=== PATIENT | male | born 1930 | race Caucasian/White ===

== ENCOUNTER 2016-12-30 15:06 | Observation (INO) | payer MEDICARE, BC ==
--- NOTE | ~2016-12-30 | DS ---
Discharge Summary [facility] [address] [place]. [address] NAME: KANG MUÑIZ JR : [birth year] STATUS : DIS Zacarias PAT#: [id number] AGE: 86 ADM/REG DATE : 12/30/16 MR#: [id number] REPORT SERV DATE: 01/01/17 DICTATED BY: Nic RUDOLPH DATE: 01/01/17 REPORT STATUS : Draft TRANSCRIBED BY: MODLuna DATE: 01/01/17 ADMISSION DATE: 12/30/2016 DISCHARGE DATE: 01/01/2017 DIAGNOSES AT DISCHARGE: TIA, type 2 diabetes, aortic stenosis, mild in nature per echo. CONSULTS: Cardiology and Neurology. PROCEDURES: MRI brain, carotid ultrasound, and CTA neck. BRIEF HOSPITAL COURSE: An 86-year-old male patient, came in with transient neuro symptoms concerning for TIA, was placed in the CDU. His medical therapy was upgraded to a combination of Eliquis plus aspirin with the addition of Lipitor 80 at bedtime. Imaging studies included a negative MRI of the brain and negative carotid ultrasound. There was some suggestion on CTA of the neck of a jugular venous thrombus; however, a dedicated CT of the neck showed there was no such thrombus and this was in fact a normal study. The patient was also found to have a low B12 level which was treated with vitamin replacement. Once his studies came back to be found unremarkable, he was felt stable to discharge home. He has a 2-week followup with his title clerk automobile Dr. Ray Bedoya. He will continue on his home therapy which will include Eliquis 5 b.i.d.; aspirin 81 daily; Lipitor 80 at bedtime; Lasix 20 daily; Protonix 40 daily; and vitamin D 5000 units daily. Further recommendations for ongoing treatment pending outpatient followup with his primary care provider as well as Cardiology. [facility]/ILDEFONSO Nic Rudolph M.D. / [id number] CC: Margarito Woodard M.D.
--- NOTE | ~2016-12-30 | HP ---
History And Physical [place] [address] [facility] [place]. [address] NAME: KANG MUÑIZ JR : [birth year] STATUS : ADM Zacarias PAT#: [id number] AGE: 86 ADM/REG DATE : 12/30/16 MR#: [id number] REPORT SERV DATE: 12/30/16 DICTATED BY: KAMERON CHAVARRIA DATE: 12/30/16 REPORT STATUS : Draft TRANSCRIBED BY: MODL DATE: 12/30/16 DATE OF ADMISSION: 12/30/2016 CHIEF COMPLAINT: Dizziness with visual changes while at [employer] today. HISTORY OF PRESENT ILLNESS: The patient is an 86-year-old very pleasant male with past medical history of diabetes type 2 non-insulin dependent, aortic stenosis, asthma history, carotid disease followed by Dr. Bedoya, and rectal cancer history followed by Dr. Good, who presents after having gone to [facility] today and was noted to be having dizziness changes which he initially attributed to his vertigo that he has had chronically, but symptoms were slightly different noticed by his . The patient also reported that he had difficulty speaking and visual changes with reading the bulletin, which is noncharacteristic of him. After these triplet of symptoms, the patient's told the patient he needs to come to emergency room for evaluation. The patient has currently gone under workup for carotid disease by Dr. Bedoya and has to have an ultrasound tomorrow and there are concerns for possible TIA symptoms in the emergency room. Symptoms did occur at 10 o'clock. All symptoms have resolved. The patient was discussed with Neurology in the ER, non-tPA candidate. Symptoms initially were constant, moderate severity, but no pain or radiating symptoms. No nausea, vomiting, fever, chills, or headache. Has had chronic cough, but no bronchitis. There are no worsening or relieving symptoms, but they are clinically resolved all at this time. REVIEW OF SYSTEMS: For additional 10-point review of systems, negative for that noted in HPI. PAST MEDICAL HISTORY: Colon cancer, followed by Dr. Good; diabetes; aortic stenosis; carotid disease, followed by Dr. Bedoya. Additional past medical history of asthma and vertigo. SURGICAL HISTORY: Has had rectal surgeries by Dr. Good. SOCIAL HISTORY: No smoking. No illicits. Has had one glass of wine in college and gave up beer when romo went from 5 cents to 10 cents a can. FAMILY HISTORY: Mother had cancer, unclear which type or variety. Father of end-stage renal disease. ALLERGIES: SULFA AND DILAUDID. HOME MEDICATIONS: Albuterol, Eliquis, Lasix, Xopenex, a multivitamin, and Klor-Con. PHYSICAL EXAMINATION: VITAL SIGNS: Blood pressure 139/63, temperature 98.5, pulse 65, respirations 18, O2 saturations 99%. GENERAL: No acute distress. Calm, pleasant. HEAD: Normocephalic, atraumatic. History And Physical [address] [address] NAME: KANG MUÑIZ JR : [birth year] STATUS : ADM Zacarias PAT#: [id number] AGE: 86 ADM/REG DATE : 12/30/16 MR#: [id number] REPORT SERV DATE: 12/30/16 DICTATED BY: KAMERON CHAVARRIA DATE: 12/30/16 REPORT STATUS : Draft TRANSCRIBED BY: ILDEFONSO DATE: 12/30/16 EYES: No scleral icterus. EOMI. No nystagmus. ENT: Mildly poor dentition, but moist mucous membranes. Nares clear. No pharyngeal cobblestoning. No erythema in posterior pharynx. Negative thrush. CV: Regular rate with systolic ejection murmur approximately 2/6. Pedal pulses equal bilaterally. No pedal edema. Cap refill less than 2 seconds. GI: Soft, nontender, nondistended. Bowel sounds positive. Negative fluid wave. : Deferred. MUSCULOSKELETAL: Moves all extremities x4. Symmetrical strength in upper and lower extremities. SKIN: Warm and dry. LYMPH: No cervical or supraclavicular lymphadenopathy. HEME: No bleeding or bruising. NEURO: Alert and oriented. Moves all extremities. Symmetrical strength bilaterally. Equal hand die maker trim in upper extremities. Sensation is still grossly intact in lower extremities. Fine touch finger dexterity still intact. Able to read fine print even smaller than his bulletin per family at bedside. No nystagmus. No reproducible vertigo at this time. Symmetrical smile. Normal vocal carole. PSYCH: Appropriate mood and affect, joking manner. Very pleasant. LABORATORY DATA AND IMAGING: Portable chest, no acute abnormality. CTA neck, no acute intracranial abnormality or atrophy. Chronic microvascular and chronic matter ischemic changes. No significant arterial abnormality within the neck or brain, nodule, or complex cysts at isthmus of thyroid. Frontal, ethmoid, and maxillary sinus inflammatory changes with maxillary and ethmoid sinus surgical changes. Degenerative changes especially C5-C6. Minimal nodule in the right upper lobe only partially imaged. Calcified granuloma in the left lung apex. CBC; WBC count 7.3, H and H 13.8 and 41.6, MCV 98.1, platelets 195. INR 1.3. Brain stroke protocol, no acute intracranial abnormality or atrophy. Chronic microvascular ischemic changes, calcified atherosclerosis, maxillary disease, and surgical changes. CMP; sodium 145, potassium 4.0, chloride 108, carbon dioxide 30, BUN and creatinine 17 and 1.21, glucose 83, total protein 7.6, albumin 3.4 with a globulin of 4.2, alkaline phosphatase 103, AST and ALT 11 and 15, troponin negative. EKG, normal sinus rhythm with a rate of 70, QTc of 423. No dynamic ST changes. ASSESSMENT AND PLAN: 1. Transient ischemic attack workup. 2. Aortic stenosis. 3. Rectal cancer history. 4. Incidental nodule, minimal size on upper lung exam. 5. Asthma history. 6. Diabetes type 2. 7. Vertigo. 8. Carotid disease. 9. Thyroid irregularity on CT. PLAN: For TIA, prior changes noted on CT. Does have vertigo history, but in the presence of acute visual changes and concern from . We will continue neuro workup and MRI. Has had CTA performed in the emergency room. Does have history of carotid disease that is under History And Physical [address] [address] NAME: ANTONINOKANG Matt SHELTON : [birth year] STATUS : ADM Zacarias PAT#: [id number] AGE: 86 ADM/REG DATE : 12/30/16 MR#: [id number] REPORT SERV DATE: 12/30/16 DICTATED BY: KAMERON CHAVARRIA DATE: 12/30/16 REPORT STATUS : Draft TRANSCRIBED BY: MODL DATE: 12/30/[address] Bedoya. We will continue TIA order set until ruled out. We will defer to a.m. team for neuro consult pending findings from echocardiogram and MRI. 1. Aortic stenosis followed by Dr. Bedoya. 2. Rectal cancer history, follows yearly with Dr. Good. 3. Irregular nodularity on lung incidentally found, minimal size. Chest x-ray does not show this. We will possibly need followup with outpatient. 4. Asthma history, controlled. 5. Diabetes type 2. Diet controlled. Continue sliding scale insulin. 6. Vertigo history, not reproducible acutely. 7. Carotid disease. To have followup with Dr. Bedoya. We will consult Dr. Bedoya as the patient is to have ultrasound tomorrow as an outpatient as previously scheduled. 8. Thyroid changes. Check TSH and free T4 in a.m. All questions were answered with the patient and family at bedside. DDN/MODL Kameron Chavarria MD / [id number] CC: MD Rosalino No II, M.D.
[2016-12-30 12:34] LABS: BASOPHILS 0.7 %; BASOPHILS ABSOLUTE 0.05 10/3/uL (0.0-0.16); EOSINOPHILS ABSOLUTE 1.17 10/3/uL (0.0-0.53); HEMOGLOBIN 13.8 g/dL (13.6-17.8); LYMPHOCYTES 18.7 %; LYMPHOCYTES ABSOLUTE 1.37 10/3/uL (0.67-4.30); MEAN CORPUS HGB CONC 33.2 g/dL (32.0-36.0); MEAN CORPUSCULAR HEMOGLOB 32.5 pg (26.0-34.0); MEAN CORPUSCULAR VOLUME 98.1 fL (80-100); MEAN PLATELET VOLUME 9.2 fL (9.2-13.0); MONOCYTES 10.4 %; MONOCYTES ABSOLUTE 0.76 10/3/uL (0.21-1.20); NEUTROPHILS 54.2 %; NEUTROPHILS ABSOLUTE 3.97 10/3/uL (2.02-8.40); PLATELET COUNT 175 10/3/uL (150-400); RBC DISTRIBUTION WIDTH 13.1 % (12.0-16.0); RED CELL COUNT 4.24 10/6/uL (4.7-6.1); WHITE BLOOD CELLS 7.3 10/3/uL (4.5-10.5)
[2016-12-30 12:36] LABS: HEMATOCRIT 41.6 % (40.0-51.0); MANUAL DIFF NO %
[2016-12-30 12:46] LABS: INTERNATIONAL NORMAL RATI 1.3 UNITS (-); PARTIAL THROMBO TIME 33.1 SEC (22.5-37.2); PROTIME (NOT ORD) 16.3 SEC (12.0-14.5)
[2016-12-30 12:50] LABS: A/G RATIO 0.8 (0.7-1.9); ALBUMIN 3.4 G/DL (3.5-5.0); ALKALINE PHOSPHATASE 103 U/L (45-117); BUN (BLOOD UREA NITROGEN) 17 MG/DL (6-23); CHLORIDE, SERUM 108 MMOL/L (96-112); CO2 (CARBON DIOXIDE) 30 MMOL/L (24-34); CREATININE 1.21 MG/DL (0.70-1.30); GFR AFRICAN AMERICAN 62 ML/MIN (>=60); GFR NON AFRICAN AMERICAN 53 ML/MIN (>=60); GLOBULIN 4.2 G/DL (2.5-4.1); GLUCOSE, SERUM 83 MG/DL (60-99); SGOT(AST) 11 U/L (5-40); SGPT(ALT) 15 U/L (5-65); SODIUM, SERUM 145 MMOL/L (135-148); TOTAL BILIRUBIN 0.4 MG/DL (0-1.2); TOTAL PROTEIN 7.6 G/DL (6.0-8.5); TROPONIN I <0.02 NG/ML (<0.05)
[~2016-12-30 15:06] MED LIST: ADVAIR250 INH; ASAB PO; B COMPLETE PO; D.O.S.100 MG PO; ELIQUIS 5 MG TAB5 MG PO; FIBERCON PO; FISH-EPA1000 MG PO; GLUCPH PO; HALF81 PO; KLOR-CON 1010 MEQ PO; L20 PO; MUCINEX DM1 TAB OR; MUCINEX DM1 TAB PO; MULTIPLE VIT PO; NASONEX NAS; PLAVIX PO; POT GLUCONAT595 M1 PO; PRIN5 PO; PROAIR HFA INH; PROVHFA INH; STOOL SOFTEN100 MG PO; VITC500 PO; XOPEN0.5ML INH; XOPENEX HFA INH; XOPENEX0.31 MG INH; XOPENEX1.25 MG/3; XOPENEX1.25 MG/3 INH; ZOCOR20 PO; ZOL50 PO; ZYRTEC ALLGY10 MG PO
[2016-12-30 21:23] LABS: CHOL/HDL RATIO(NOT ORDER) 4.4 (0-5); CPK (IF ELEVATED MB BANDS) 41 U/L (0-200); FREE T4 0.77 NG/DL (0.76-1.46); HDL CHOLESTEROL 43 MG/DL (> 39); LDL CHOLESTEROL 116 MG/DL (< 130); NON-HDL CHOLESTEROL 145 MG/DL (< 160); TRIGLYCERIDE 147 MG/DL (< 150); TROPONIN I <0.02 NG/ML (<0.05)
[2016-12-30 21:24] LABS: CHOLESTEROL 188 MG/DL (< 200)
[2016-12-31 04:46] LABS: ASCORBIC ACID (UR NOT ORDER) 40 (NEG); BILIRUBIN, URINE NEGATIVE (NEG); KETONE, URINE NEGATIVE (NEG); LEUKOCYTE ESTERASE(NOT OR NEG (NEG); WBC (NOT ORDERED) (RFLEX) < 1 (0-5)
[2016-12-31 05:16] LABS: CPK (IF ELEVATED MB BANDS) 31 U/L (0-200); TROPONIN I <0.02 NG/ML (<0.05)
[2016-12-31 10:05] LABS: CHOL/HDL RATIO(NOT ORDER) 4.6 (0-5); CHOLESTEROL 175 MG/DL (< 200); HDL CHOLESTEROL 38 MG/DL (> 39); LDL CHOLESTEROL 105 MG/DL (< 130); NON-HDL CHOLESTEROL 137 MG/DL (< 160); TRIGLYCERIDE 161 MG/DL (< 150)
[2016-12-31 14:42] LABS: CPK (IF ELEVATED MB BANDS) 34 U/L (0-200); TROPONIN I <0.02 NG/ML (<0.05)
[2016-12-31 15:35] LABS: CREATININE 1.18 MG/DL (0.70-1.30); GFR AFRICAN AMERICAN 63 ML/MIN (>=60); GFR NON AFRICAN AMERICAN 55 ML/MIN (>=60)
[2017-01-01 05:11] LABS: BASOPHILS 0.4 %; BASOPHILS ABSOLUTE 0.03 10/3/uL (0.0-0.16); EOSINOPHILS 13.6 %; EOSINOPHILS ABSOLUTE 1.15 10/3/uL (0.0-0.53); HEMATOCRIT 38.9 % (40.0-51.0); HEMOGLOBIN 13.1 g/dL (13.6-17.8); IMMATURE GRANULOCYTES 0.2 %; IMMATURE GRANULOCYTES ABSOLUTE 0.02 10/3/uL (0.0-0.11); LYMPHOCYTES 18.3 %; LYMPHOCYTES ABSOLUTE 1.55 10/3/uL (0.67-4.30); MEAN CORPUS HGB CONC 33.7 g/dL (32.0-36.0); MEAN CORPUSCULAR HEMOGLOB 32.4 pg (26.0-34.0); MEAN CORPUSCULAR VOLUME 96.3 fL (80-100); MEAN PLATELET VOLUME 9.3 fL (9.2-13.0); MONOCYTES 7.3 %; MONOCYTES ABSOLUTE 0.62 10/3/uL (0.21-1.20); NEUTROPHILS 60.2 %; NEUTROPHILS ABSOLUTE 5.09 10/3/uL (2.02-8.40); PLATELET COUNT 165 10/3/uL (150-400); RBC DISTRIBUTION WIDTH 13.2 % (12.0-16.0); RED CELL COUNT 4.04 10/6/uL (4.7-6.1); WHITE BLOOD CELLS 8.5 10/3/uL (4.5-10.5)
[2017-01-01 05:15] LABS: MANUAL DIFF NO %
[2017-01-01 05:52] LABS: CALCIUM, SERUM 8.1 MG/DL (8.5-10.4); CHLORIDE, SERUM 108 MMOL/L (96-112); CHOLESTEROL 162 MG/DL (< 200); CO2 (CARBON DIOXIDE) 26 MMOL/L (24-34); CREATININE 1.29 MG/DL (0.70-1.30); GFR AFRICAN AMERICAN 57 ML/MIN (>=60); GFR NON AFRICAN AMERICAN 49 ML/MIN (>=60); HDL CHOLESTEROL 41 MG/DL (> 39); LDL CHOLESTEROL 94 MG/DL (< 130); NON-HDL CHOLESTEROL 121 MG/DL (< 160); POTASSIUM, SERUM 3.8 MMOL/L (3.5-5.3); SODIUM, SERUM 143 MMOL/L (135-148); TRIGLYCERIDE 135 MG/DL (< 150)
[2017-01-01 05:54] LABS: BUN (BLOOD UREA NITROGEN) 22 MG/DL (6-23); GLUCOSE, SERUM 106 MG/DL (60-99)
[2017-01-01 06:57] LABS: GLYCOHEMOGLOBIN (HbA1c) 5.8 % (4.7-6.1)
[2017-01-01 09:18] LABS: CREATININE 1.2 MG/DL (0.70-1.30)
[2017-01-01] MEDS ORDERED: LIPITOR80 MG PO (17:14)
[2017-01-01] MEDS ORDERED: ASAB PO (17:14)
[2017-01-01] MEDS ORDERED: D 5000 PO (17:15)
== END 2017-01-01 17:29 | disposition home or self-care (01) ==
LOC: ER 15:06 → CDU1 16:30 → CDU2 16:39
PROVIDERS: Emergency Medicine; Internal Medicine; Nurse Practitioner
DX: G45.9 Transient cerebral ischemic attack, unspecified (principal); J45.909 Unspecified asthma, uncomplicated; E11.9 Type 2 diabetes mellitus without complications; I65.29 Occlusion and stenosis of unspecified carotid artery; I35.0 Nonrheumatic aortic (valve) stenosis; Z88.2 Allergy status to sulfonamides; G43.909 Migraine, unspecified, not intractable, without status migrainosus; H91.90 Unspecified hearing loss, unspecified ear; Z88.8 Allergy status to other drugs, medicaments and biological substances; Z79.899 Other long term (current) drug therapy; Z98.41 Cataract extraction status, right eye; Z98.42 Cataract extraction status, left eye; Z87.442 Personal history of urinary calculi; Z98.890 Other specified postprocedural states
CPT/HCPCS: 36415; 70450; 70491; 70496; 70498; 70551-52; 71010; 80048; 80053; 80061; 81001; 82140; 82306; 82533; 82550; 82565; 82607; 82962; 83036; 84439; 84443; 84484; 85025; 85610; 85730; 86850; 86900; 86901; 93005; 93880; 94640; 97165-GO; 99285; A9270-GY; C8929; G0378; G8987-CJ-GO; G8988-CJ-GO; G8989-CJ-GO; Q9957; Q9967

== ENCOUNTER 2017-01-19 14:20 | Emergency (ER) | payer MEDICARE, BC, OTHER ==
[2017-01-19 13:17] LABS: BASOPHILS 0.2 %; BASOPHILS ABSOLUTE 0.02 10/3/uL (0.0-0.16); EOSINOPHILS 0.9 %; HEMATOCRIT 37.8 % (40.0-51.0); HEMOGLOBIN 12.7 g/dL (13.6-17.8); IMMATURE GRANULOCYTES 0.3 %; IMMATURE GRANULOCYTES ABSOLUTE 0.03 10/3/uL (0.0-0.11); LYMPHOCYTES 7.9 %; LYMPHOCYTES ABSOLUTE 0.87 10/3/uL (0.67-4.30); MEAN CORPUS HGB CONC 33.6 g/dL (32.0-36.0); MEAN CORPUSCULAR HEMOGLOB 33.1 pg (26.0-34.0); MEAN CORPUSCULAR VOLUME 98.4 fL (80-100); MEAN PLATELET VOLUME 8.8 fL (9.2-13.0); MONOCYTES 7.8 %; MONOCYTES ABSOLUTE 0.85 10/3/uL (0.21-1.20); NEUTROPHILS 82.9 %; NEUTROPHILS ABSOLUTE 9.09 10/3/uL (2.02-8.40); PLATELET COUNT 206 10/3/uL (150-400); RBC DISTRIBUTION WIDTH 12.5 % (12.0-16.0); RED CELL COUNT 3.84 10/6/uL (4.7-6.1)
[2017-01-19 13:20] LABS: MANUAL DIFF NO %
[2017-01-19 13:24] LABS: INTERNATIONAL NORMAL RATI 1.7 UNITS (-); PARTIAL THROMBO TIME 41.3 SEC (22.5-37.2); PROTIME (NOT ORD) 19.7 SEC (12.0-14.5)
[2017-01-19 13:33] LABS: BUN (BLOOD UREA NITROGEN) 15 MG/DL (6-23); CALCIUM, SERUM 8.5 MG/DL (8.5-10.4); CHEST PAIN PROFILE TAT 0 Hrs 20 Mins; CHLORIDE, SERUM 102 MMOL/L (96-112); CO2 (CARBON DIOXIDE) 29 MMOL/L (24-34); CREATININE 1.19 MG/DL (0.70-1.30); GFR AFRICAN AMERICAN 63 ML/MIN (>=60); GFR NON AFRICAN AMERICAN 54 ML/MIN (>=60); POTASSIUM, SERUM 4.3 MMOL/L (3.5-5.3); SODIUM, SERUM 139 MMOL/L (135-148); TROPONIN I <0.02 NG/ML (<0.05)
[2017-01-19 13:34] LABS: GLUCOSE, SERUM 111 MG/DL (60-99)
[~2017-01-19 14:20] MED LIST changes: +D 5000 PO; +LIPITOR80 MG PO
== END 2017-01-19 16:26 | disposition home or self-care (01) ==
LOC: ER 14:20
PROVIDERS: Emergency Medicine
DX: R07.9 Chest pain, unspecified (principal); J45.909 Unspecified asthma, uncomplicated; E11.9 Type 2 diabetes mellitus without complications; Z95.5 Presence of coronary angioplasty implant and graft; Z85.528 Personal history of other malignant neoplasm of kidney; Z88.5 Allergy status to narcotic agent; Z88.2 Allergy status to sulfonamides; Z79.82 Long term (current) use of aspirin; Z79.899 Other long term (current) drug therapy
CPT/HCPCS: 71010; 80048; 83735; 84484; 85025; 85610; 85730; 93005; 99285; A9270-GY

== ENCOUNTER 2017-03-17 18:39 | Emergency (ER) | payer MEDICARE, OTHER, BC ==
[2017-03-17 18:49] LABS: BUN (BLOOD UREA NITROGEN) 19 MG/DL (6-23); CALCIUM, SERUM 8.6 MG/DL (8.5-10.4); CHLORIDE, SERUM 113 MMOL/L (96-112); CREATININE 1.11 MG/DL (0.70-1.30); GFR AFRICAN AMERICAN 68 ML/MIN (>=60); GFR NON AFRICAN AMERICAN 59 ML/MIN (>=60); POTASSIUM, SERUM 3.6 MMOL/L (3.5-5.3); SODIUM, SERUM 146 MMOL/L (135-148)
[2017-03-17 18:51] LABS: CO2 (CARBON DIOXIDE) 23 MMOL/L (24-34); GLUCOSE, SERUM 114 MG/DL (60-99)
== END 2017-03-17 19:50 | disposition home or self-care (01) ==
LOC: ER 18:39
PROVIDERS: Emergency Medicine
DX: H81.10 Benign paroxysmal vertigo, unspecified ear (principal); J45.909 Unspecified asthma, uncomplicated; E11.9 Type 2 diabetes mellitus without complications; Z85.038 Personal history of other malignant neoplasm of large intestine; Z88.5 Allergy status to narcotic agent; Z88.2 Allergy status to sulfonamides; Z79.82 Long term (current) use of aspirin; Z79.899 Other long term (current) drug therapy
CPT/HCPCS: 80048; 96374; 99284; A9270-GY; J2405

== ENCOUNTER 2017-06-22 19:35 | Emergency (ER) | payer MEDICARE, BC ==
[2017-06-22 20:40] LABS: BASOPHILS 0.1 %; BASOPHILS ABSOLUTE 0.01 10/3/uL (0.0-0.16); EOSINOPHILS 0.8 %; EOSINOPHILS ABSOLUTE 0.11 10/3/uL (0.0-0.53); HEMATOCRIT 44.8 % (40.0-51.0); HEMOGLOBIN 15.1 g/dL (13.6-17.8); IMMATURE GRANULOCYTES 0.3 %; IMMATURE GRANULOCYTES ABSOLUTE 0.04 10/3/uL (0.0-0.11); LYMPHOCYTES 13.6 %; LYMPHOCYTES ABSOLUTE 1.83 10/3/uL (0.67-4.30); MEAN CORPUS HGB CONC 33.7 g/dL (32.0-36.0); MEAN CORPUSCULAR HEMOGLOB 33.4 pg (26.0-34.0); MEAN CORPUSCULAR VOLUME 99.1 fL (80-100); MEAN PLATELET VOLUME 9.4 fL (9.2-13.0); MONOCYTES ABSOLUTE 0.94 10/3/uL (0.21-1.20); NEUTROPHILS 78.2 %; NEUTROPHILS ABSOLUTE 10.54 10/3/uL (2.02-8.40); PLATELET COUNT 213 10/3/uL (150-400); RBC DISTRIBUTION WIDTH 13.9 % (12.0-16.0); RED CELL COUNT 4.52 10/6/uL (4.7-6.1); WHITE BLOOD CELLS 13.5 10/3/uL (4.5-10.5)
[2017-06-22 20:41] LABS: MANUAL DIFF NO %
[2017-06-22 20:53] LABS: BUN (BLOOD UREA NITROGEN) 20 MG/DL (6-23); CALCIUM, SERUM 9.2 MG/DL (8.5-10.4); CHLORIDE, SERUM 108 MMOL/L (96-112); CREATININE 1.33 MG/DL (0.70-1.30); GFR AFRICAN AMERICAN 55 ML/MIN (>=60); GFR NON AFRICAN AMERICAN 47 ML/MIN (>=60); GLUCOSE, SERUM 108 MG/DL (60-99); POTASSIUM, SERUM 3.9 MMOL/L (3.5-5.3); SODIUM, SERUM 145 MMOL/L (135-148)
[2017-06-22 20:55] LABS: CO2 (CARBON DIOXIDE) 29 MMOL/L (24-34)
== END 2017-06-23 00:30 | disposition left against medical advice (07) ==
LOC: ER 19:35
PROVIDERS: Emergency Medicine
DX: R10.9 Unspecified abdominal pain (principal); Z53.21 Procedure and treatment not carried out due to patient leaving prior to being seen by health care provider; Z88.2 Allergy status to sulfonamides; Z88.5 Allergy status to narcotic agent; Z79.82 Long term (current) use of aspirin; Z79.899 Other long term (current) drug therapy
CPT/HCPCS: 80048; 81001; 85025